=== PATIENT | female | born 2000 | race Caucasian/White ===

== ENCOUNTER → 2023-03-27 12:28 | Outpatient (CLI) | payer BC, SELFPAY | PROVIDERS: PCP Family Medicine; Visit Provider Physician Assistant | DX: J02.9 Acute pharyngitis, unspecified (principal) | CPT/HCPCS: 87070 ==

== ENCOUNTER → 2024-05-02 14:11 | Outpatient (CLI) | payer SELFPAY | PROVIDERS: PCP Physician Assistant; Referring Provider Family Medicine; Visit Provider Family Medicine | DX: R10.9 Unspecified abdominal pain (principal); F64.0 Transsexualism | CPT/HCPCS: 87086 ==